=== PATIENT | female | born 1970 | race Caucasian/White ===

== ENCOUNTER → 2017-12-27 | Outpatient (CLI) | payer OTHER | LOC: CIMAGING 10:42 | PROVIDERS: ATTEND Family Medicine | DX: R22.2 Localized swelling, mass and lump, trunk (principal); N20.0 Calculus of kidney | CPT/HCPCS: 71100-PO ==

== ENCOUNTER → 2018-01-29 | Outpatient (CLI) | payer OTHER ==
[~2018-01-29] MED LIST: IOPAMIDOL (ISOVUE-300) 100 ML BTL ONE
== END ==
LOC: CIMAGING 09:23
PROVIDERS: ATTEND Family Medicine
DX: R07.81 Pleurodynia (principal); N20.0 Calculus of kidney
CPT/HCPCS: 71260-PO; Q9967